=== PATIENT | female | born 1975 | race Caucasian/White ===

== ENCOUNTER → 2020-03-02 | Day surgery (SDC) | payer OTHER ==
[~2020-03-02] MED LIST: CANABIS PO
== END | disposition home or self-care (01) ==
LOC: ADM 02-28 08:00 → CIR.AMB 06:18
PROVIDERS: ATTEND Surgery
DX: C50.212 Malignant neoplasm of upper-inner quadrant of left female breast (principal); Z20.828 Contact with and (suspected) exposure to other viral communicable diseases